=== PATIENT | female | born 1960 | race Caucasian/White ===

== ENCOUNTER → 2017-01-31 | Outpatient (REF) | LOC: LAB 16:36 | DX: Z00.00 Encounter for general adult medical examination without abnormal findings (principal); Z12.11 Encounter for screening for malignant neoplasm of colon ==

== ENCOUNTER → 2019-02-16 | Outpatient (CLI) | payer BC | LOC: CARDREHAB 07:50 | DX: E78.2 Mixed hyperlipidemia (principal); R53.83 Other fatigue; R06.02 Shortness of breath | CPT/HCPCS: A9500 ==

== ENCOUNTER → 2019-04-24 | Outpatient (CLI) | payer BC | LOC: RAD 08:11 | DX: M79.671 Pain in right foot (principal) ==

== ENCOUNTER → 2020-07-17 | Outpatient (REF) | LOC: LAB 08:08 | DX: R20.2 Paresthesia of skin (principal) ==

== ENCOUNTER → 2020-12-12 | Outpatient (REF) | LOC: LAB 09:14 → EDSTATUS 09:16 | DX: Z00.00 Encounter for general adult medical examination without abnormal findings (principal); Z12.11 Encounter for screening for malignant neoplasm of colon ==